=== PATIENT | female | born 1980 | race Caucasian/White ===

== ENCOUNTER 2019-03-17 01:37 | Inpatient (IN) | payer OTHER ==
[2019-03-17] MEDS ORDERED: BUTORPHANOL TARTRATE 1 MG/ML VIAL IVPB ONE (03:15)
[2019-03-17] MEDS ORDERED: PROMETHAZINE HCL 25 MG/1 ML VIAL IVPB ONE ×2 (03:15→12:54)
--- NOTE | 2019-03-17 03:23 | HP ---
Past Medical History - Primary Care Physician PCP:: Jozef Mann - Admission Chief Complaint: 39yo P1 with at EGA 39w2d admitted with spontaneous labor. History of Present Illness: complicated by AMA and excessive weight gain. 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: No: Alzheimer's, CVA, Dementia, Migraine, Multiple Sclerosis, Peripheral Neuropathy, Parkinson's, Seizure, Syncope, TIA, Vertigo, Other Cardiovascular: No: AFIB, Aneurysm, Aortic Insufficiency, Aortic Stenosis, CAD, CHF, Deep Vein Thrombosis, HTN, Hyperlipdemia, [place], Mitral Insufficiency, Mitral Stenosis, Murmur, Pulmonary Hypertension, Other Pulmonary: No: Asthma, Bronchitis, Cancer, COPD, O2 Dependent, Pneumonia, Previously Intubated, Pulmonary Embolus, Pulmonary Fibrosis, Sleep Apnea, Other Gastrointestinal: No: Ascites, Cancer, Constipation, Crohn's Disease, Diverticulitis, Diverticulosis, Esophageal Varices, Gastritis, GERD, GI Bleed, Hemorrhoids, Hiatal Hernia, Inflamatory Bowel Disease, Irritable Bowel Disease, Pancreatitis, Peptic Ulcer Disease, Ulcerative Colitis, Other Hepatobiliary: No: Cirrhosis, Cholelithiasis, Cholecystitis, Choledocholithiasis , Hepatitis A, Hepatitis B, Hepatitis C, Other Renal/: No: Renal Failure, Renal Inusuff, BPH, Cancer, Hematuria, Hemodialysis , Neurogenic Bladder, Renal Calculi, UTI, Other Reproductive: No: Ectopic , Endometriosis, Fibroids, PID, Polycystic Ovary Syndrome, Postmenopausal, Other ...: 3 ...Para: 1 ...Induced : 1 ... Weeks Gestation by Dates: 39.2 ...EDC by Sono: 03/22/19 Heme/Onc: No: Anemia, B12 Deficiency, Bleeding Disorder, Cancer, Current Chemotherapy, Current Radiation Therapy, Hemochromatosis, Hypercoaguable State, Myeloproliferative Synd, Sickle Cell Disease, Sickle Cell Trait, Thrombocytopenia, Other Infectious Disease: No: AIDS, C-Diff, Herpes Zoster, HIV, MRSA, STD's, Tuberculosis, VREF, Other Psych: No: Addictions, Anxiety, Bipolar, Depression, Panic, Psychosis, Schizophrenia, Other Musculoskeletal: No: Bursitis, Chronic low back pain, Hemiparesis, Hemiplegia, Osteoarthritis, Paraplegia, Other Rheumatology: No: Fibromyalgia, Gout, Lupus, Rheumatoid Arthritis, Sarcoidosis, Vasculitis, Other ENT: No: Allergic Rhinitis, Sinusitis, Other Endocrine: No: Essex's Disease, Willow's Disease, Diabetes Insipidus, Diabetes Mellitus, Hyperparathyroidism, Hyperthyroidism, Hypothyroidism, Osteopenia, SIADH, Other Dermatology: No: Basal Cell, Cellulitis, Eczema, Melanoma, Psoriasis, Squamous Cell, Other - Past Surgical History Hx Myomectomy: No Hx Transabdominal Cerclage: No Additional Surgical History: Breast lift, breast augmentation - Smoking History Smoking history: Never smoked Have you smoked in the past 12 months: No - Alcohol/Substance Use Hx Alcohol Use: No History of Substance Use: reports: None - Social History Usual Living Arrangement: Yes: With Significant Other ADL: Independent History of Recent Travel: No Home Medications - Allergies Allergies/Adverse Reactions: Allergies Allergy/AdvReac Type Severity Reaction Status Date / Time codeine Allergy Severe Vomiting Verified 01/09/19 11:26 Penicillins Allergy Severe Difficulty Verified 01/09/19 11:26 Breathing ciprofloxacin [From Cipro] Allergy Intermediate Verified 01/09/19 11:26 soy Allergy Intermediate Hives Verified 01/09/19 11:26 tree and shrub pollen Allergy Intermediate Swelling Verified 01/09/19 11:26 fruit Allergy Severe Swelling Uncoded 01/09/19 11:26 - Home Medications Home Medications: Ambulatory Orders RX: Vitamins (Sjr) - 1 tab PO DAILY 01/09/19 Family Disease History - Family Disease History Family History: Unremarkable Review of Systems - Review of Systems Constitutional: reports: Other (pain/labor) Eyes: reports: No Symptoms HENT: reports: No Symptoms Neck: reports: No Symptoms Cardiovascular: reports: No Symptoms Respiratory: reports: No Symptoms Gastrointestinal: reports: No Symptoms Genitourinary: reports: No Symptoms Breasts: reports: No Symptoms Reported Musculoskeletal: reports: No Symptoms Integumentary: reports: No Symptoms Neurological: reports: No Symptoms Endocrine: reports: No Symptoms Hematology/Lymphatic: reports: No Symptoms Psychiatric: reports: No Symptoms Pain Intensity: 8 Physical Exam - Maternity Constitutional: Yes: Well Nourished, Calm, Moderate Distress Eyes: Yes: WNL, Conjunctiva Clear, EOM Intact HENT: Yes: WNL, Atraumatic, Normocephalic Neck: Yes: WNL, Supple, Trachea Midline Cardiovascular: Yes: WNL, Regular Rate and Rhythm Lungs: Clear to auscultation, Normal air movement Breast(s): Yes: WNL - Abdominal Exam/OB Fundal Height: 40 Number of Fetuses: Single Presentation: Vertex Contractions: Yes Regularity: Regular (q4min) Intensity: Moderate Monitor Mode: External Heart Rate (range): 140 Heart Rate Location: Midline Category: I Accelerations: Non-Uniform Decelerations: None - Vaginal Exam/OB Vaginal Bleediing: No Speculum Exam: No Dilatation (cm): 1 Effacement (%): 50 Amniotic Membrane Status: Intact Presentation: Vertex/Position Station: -4 - Physical Exam Musculoskeletal: Yes: WNL Extremities: Yes: WNL Edema: Yes Edema: LLE: Trace, RLE: Trace Integumentary: Yes: WNL Deep Tendon Reflex Grade: Normal +2 ...Motor Strength: WNL Psychiatric: Yes: WNL, Alert, Oriented Hemorrhage Risk Assessment - Risk Factors Medium Risk Factors: Yes: None High Risk Factors: Yes: None Risk Score: 1 Risk Level: Medium Risk Imaging - Results Ultrasound: Report Reviewed Assessment/Plan 39yo P1 with at EGA 39w2d admitted with spontaneous labor. The Fetus with category I tracing. Labor is in latent phase. Plan to monitor labor progress. The pt requested pain meds.
[2019-03-17 03:40] LABS: BASO % 0.8 % (0-2.0); EOS % 1.2 % (0-4.5); HEMATOCRIT 35.2 % (32.4-45.2); HEMOGLOBIN 11.7 GM/dL (10.7-15.3); LYMPH % 12.8 % (8-40); MCH 29.5 pg (25.7-33.7); MCHC 33.2 g/dl (32.0-36.0); MEAN CELL VOLUME 88.8 fl (80-96); MEAN PLT VOLUME 9.5 fl (7.5-11.1); MONO % 9.9 % (3.8-10.2); NEUT % 75.3 % (42.8-82.8); PLATELET COUNT 301 K/MM3 (134-434); RBC 3.96 M/mm3 (3.60-5.2); RDW 13.2 % (11.6-15.6); WHITE BLOOD COUNT 10.7 K/mm3 (4.0-10.0)
[2019-03-17 03:52] LABS: INR 0.91 (0.83-1.09); PROTHROMBIN TIME (PATIENT) 10.7 SEC (9.7-13.0)
[2019-03-17 03:54] LABS: ACTIVATED PTT 29.8 SECONDS (25.2-36.5)
[2019-03-17 04:05] LABS: CALCIUM 8.6 mg/dL (8.5-10.1); CREATININE 0.5 mg/dL (0.55-1.3); POTASSIUM 4.3 mmol/L (3.5-5.1)
[2019-03-17] MEDS ORDERED: PROMETHAZINE HCL 25 MG/1 ML VIAL ONE (05:07)
[2019-03-17] MEDS ORDERED: BUTORPHANOL TARTRATE 2 MG/ML VIAL ONE (05:07)
[2019-03-17] MEDS: ELECTROLYTE-148 SOLN 1,000 ML IV SCH (05:15)
[2019-03-17 08:08] VITALS: BMI 31.1
[2019-03-17] MEDS ORDERED: OXYTOCIN 30 UNITS in 0.9% NS 30 UNIT/500 ML INFUS.BAG IVPB ONE (12:43)
[2019-03-17] MEDS ORDERED: BUTORPHANOL TARTRATE 1 MG/ML VIAL IVPUSH ONE (12:54)
--- NOTE | 2019-03-17 12:54 | PN ---
Ante-Partal Exam - Subjective Subjective: Patient comfortable without complaints Vital Signs: Vital Signs Temperature 98.6 F 03/17/19 10:00 Pulse Rate 73 03/17/19 11:00 Respiratory Rate 18 03/17/19 11:00 Blood Pressure 108/66 03/17/19 11:00 O2 Sat by Pulse Oximetry (%) Bleeding: No Headache: No Visual changes: No Right upper quadrant pain: No - Contractions Contractions: Yes Regularity: Irregular Intensity: Mild/Mod Monitor Mode: External - Exam during Labor Heart Rate: 130 Variability: Moderate Category: I Monitor Accelerations: Present Monitor Decelerations: None Exam: Vaginal Dilatation (cm): 2 Effacement (%): 50 Station: -4 - Intrapartum Hemorrhage Risk Medium Risk Factors: None High Risk Factors: None Risk Score: 0 Risk Level: Low Risk - Assessment/Plan Assessment/Plan: 39 yo in early labor, no contractions 1. Will augment with pitocin 2. Will offer pain medication upon request 3. Category I FHT 4. Will proceed with expectant management
[2019-03-17] MEDS ORDERED: OXYTOCIN 30 UNITS in 0.9% NS 30 UNIT/500 ML INFUS.BAG IVPB SCH (13:00)
[2019-03-17] MEDS ORDERED: FENTANYL/BUPIVACAINE/NS/PF - PCEA - 50 ML DISP.SYRIN EP ONE ×3 (14:24→22:26)
[2019-03-17] MEDS ORDERED: BUPIVACAINE HCL/PF 0.25% (2.5MG/ML) 10 ML VIAL ONE ×3 (14:33→20:59)
[2019-03-17] MEDS ORDERED: EPINEPHrine/PF 1 MG/1 ML (1:1,000) AMPULE ONE (14:33)
[2019-03-17] MEDS ORDERED: LIDOCAINE HCL 1% PRESERVATIVE FREE - 30ML VIAL ONE (14:34)
[2019-03-17] MEDS ORDERED: NALOXONE HCL 0.4 MG/ML VIAL IVPUSH PRN (15:09)
[2019-03-17] MEDS ORDERED: FENTANYL/BUPIVACAINE/NS/PF - PCEA - 50 ML DISP.SYRIN EP SCH (15:15)
[2019-03-17] MEDS ORDERED: TUBERCULIN PPD 5 TU/0.1ML SYRINGE (IN PATIENT USE ONLY) ID ONE (19:00)
--- NOTE | 2019-03-17 22:10 | PN ---
Ante-Partal Exam - Subjective Subjective: Comfortable s/p replacement of epidural Vital Signs: Vital Signs Temperature 98.4 F 03/17/19 20:00 Pulse Rate 74 03/17/19 18:45 Respiratory Rate 20 03/17/19 18:45 Blood Pressure 104/66 03/17/19 18:45 O2 Sat by Pulse Oximetry (%) 99 03/17/19 18:45 Bleeding: No Headache: No Visual changes: No Right upper quadrant pain: No - Contractions Contractions: Yes Regularity: Regular Intensity: Mild Monitor Mode: External - Exam during Labor Heart Rate: 140 Variability: Moderate Category: II Monitor Accelerations: Present Monitor Decelerations: Variable (occasional) Exam: Vaginal Dilatation (cm): 8 Effacement (%): 100 Amniotic Membrane Status: Ruptured Amniotic Fluid: Clear Presentation: Vertex Station: -1 - Intrapartum Hemorrhage Risk Medium Risk Factors: None High Risk Factors: None Risk Score: 0 Risk Level: Low Risk - Assessment/Plan Assessment/Plan: 39 yo active labor 1. On pitocin, will continue per protocol 2. GBS neg 3. Pain well controlled with epidural repalcement 4. Will proceed with expectant management
[2019-03-18] MEDS ORDERED: OXYTOCIN 20 UNITS in 0.9% NS 20 UNIT/1,000 ML INFUS.BAG IV ONE ×2 (00:43→04:06)
[2019-03-18] MEDS ORDERED: LIDOCAINE HCL 1% PRESERVATIVE FREE - 30ML VIAL ONE (00:46)
--- NOTE | 2019-03-18 01:54 | PN ---
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 Weight and length unknown at this time. Head delivered spontaneously followed by shoulders and body without difficulty. Infant with spontaneous cry. Nose and mouth was bulb suctioned. Cord was clamped and cut. Perineum and vagina examined, no lacerations noted. Placenta was delivered spontaneously and intact. 20 units of pitocin in 1 L IVF was given. All counts correct x 2. Mother and stable in LDR. EBL 300cc.
[2019-03-18] MEDS ORDERED: BISACODYL 10 MG SUPP.RECT RC PRN (01:55)
[2019-03-18] MEDS ORDERED: WITCH HAZEL 50% (TUCKS) 40 PAD/JAR PAD TP PRN (01:55)
[2019-03-18] MEDS ORDERED: BENZOCAINE 20% 57 GM BOTTLE TP PRN (01:55)
[2019-03-18] MEDS ORDERED: METHYLERGONOVINE MALEATE 0.2 MG/1 ML AMP IM PRN (01:55)
[2019-03-18] MEDS ORDERED: BENZOCAINE 28 GM HEMORRHOIDAL OINTMENT TP PRN (01:55)
[2019-03-18] MEDS ORDERED: OXYTOCIN 20 UNITS in 0.9% NS 20 UNIT/1,000 ML INFUS.BAG IV SCH (02:00)
[2019-03-18] MEDS: ELECTROLYTE-148 SOLN 1,000 ML IV SCH (03:50)
[2019-03-18] MEDS: IBUPROFEN 600 MG TABLET (FP) PO PRN ×3 (07:20→20:11)
[2019-03-18] MEDS: ACETAMINOPHEN 325 MG TABLET (FP) PO PRN ×3 (07:22→20:11)
[2019-03-18] MEDS: PRENATAL VITAMINS W/ FOLIC ACID TABLET (FP) PO SCH (10:52)
[2019-03-19] MEDS: ACETAMINOPHEN 325 MG TABLET (FP) PO PRN ×5 (01:52→23:40)
[2019-03-19] MEDS: IBUPROFEN 600 MG TABLET (FP) PO PRN ×5 (01:52→23:40)
[2019-03-19 08:26] LABS: BASO % 0.7 % (0-2.0); EOS % 2.4 % (0-4.5); HEMATOCRIT 26.9 % (32.4-45.2); LYMPH % 14.7 % (8-40); MCH 29.7 pg (25.7-33.7); MCHC 33.3 g/dl (32.0-36.0); MEAN CELL VOLUME 89.4 fl (80-96); MEAN PLT VOLUME 9.1 fl (7.5-11.1); MONO % 10.7 % (3.8-10.2); NEUT % 71.5 % (42.8-82.8); PLATELET COUNT 246 K/MM3 (134-434); RBC 3.01 M/mm3 (3.60-5.2); RDW 13.5 % (11.6-15.6); WHITE BLOOD COUNT 8.6 K/mm3 (4.0-10.0)
[2019-03-19] MEDS: PRENATAL VITAMINS W/ FOLIC ACID TABLET (FP) PO SCH (09:02)
--- NOTE | 2019-03-19 11:04 | DS ---
Physical Exam-TRENCH TRIMMER FINE Vital Signs: Vital Signs Temperature 97.6 F 03/19/19 07:50 Pulse Rate 74 03/19/19 07:50 Respiratory Rate 18 03/19/19 07:50 Blood Pressure 116/76 03/19/19 07:50 O2 Sat by Pulse Oximetry (%) 99 03/18/19 01:15 Constitutional: Yes: Well Nourished, No Distress, Calm Eyes: Yes: WNL, Conjunctiva Clear, EOM Intact HENT: Yes: WNL, Atraumatic, Normocephalic Neck: Yes: WNL, Supple, Trachea Midline Cardiovascular: Yes: WNL, Regular Rate and Rhythm Respiratory: Yes: WNL, Regular, CTA Bilaterally Gastrointestinal: Yes: WNL ...Rectal Exam: Yes: WNL Renal/: Yes: WNL ....Post : Yes: Uterus firm, Uterus non-tender, Slight lochia rubra Breast(s): Yes: WNL Musculoskeletal: Yes: WNL Extremities: Yes: WNL Edema: No Integumentary: Yes: WNL Neurological: Yes: WNL, Alert, Oriented ...Motor Strength: WNL Psychiatric: Yes: WNL, Alert, Oriented Labs: CBC, BMP 03/19/19 06:45 03/17/19 03:09 Delivery - Delivery Vaginal Delivery: No Problems Type of Anesthesia: Epidural Episiotomy/Laceration: None EBL (cc): 300 Delivery, Single - Stages of Labor Date 1st Stage Initiatied: 03/16/19 Time 1st Stage Initiated: 22:00 Date 2nd Stage Initiated: 03/18/19 Time 2nd Stage Initiated: 00:10 Date of Delivery: 03/18/19 Time of Delivery: 01:30 Time Placenta Delivered: 01:45 Placenta: Yes: Spontaneous - Condition of Voice Over Artist/Clinical Specialist Medical Device Present: Yes Infant Gender: Male Weight: 7 lb 3 oz Position: Left, OA Total Hours ROM (Hrs/Mins): 5 hours 30 minutes - 1 Minute Total Score: 8 5 Minutes Total Score: 9 - Feeding Plan Initial Plan: Exclusive throughout hospitalization Discharge Summary Reason For Visit: LABOR ADMIT Other Procedures: - Instructions Diet, Activity, Other Instructions: regular diet, no intercourse, if heavy vaginal bleeding, fever call MD follow up office 4 weeks Referrals: Jozef Mann MD [Family Provider] - - Home Medications Comprehensive Discharge Medication List: Ambulatory Orders Vitamins (Sjr) - 1 tab PO DAILY 01/09/19
[2019-03-19] MEDS ORDERED: SENNOSIDES/DOCUSATE COMBO (SENNA PLUS) TABLET (UD) PO PRN (22:00)
[2019-03-19 22:05] VITALS: PULSE 64
--- NOTE | 2019-03-20 04:29 | PN ---
Post Progress Note - Subjective Subjective: Patient without acute complaints. Reports tolerating oral intake without nausea or vomiting. Ambulating without dizziness. Denies fevers or chills. Pain well controlled with oral pain medication. without difficulty. Passing flatus. Post Day: 2 Type of Delivery: Vital Signs: Vital Signs Temperature 98.0 F 03/19/19 22:00 Pulse Rate 64 03/19/19 22:00 Respiratory Rate 18 03/19/19 22:00 Blood Pressure 108/73 03/19/19 22:00 O2 Sat by Pulse Oximetry (%) 99 03/18/19 01:15 Breast Exam: Yes: Soft, Cracked Nipples Uterus: Yes: Fundus Firm, Fundus below umbilicus Abdomen/GI: Yes: Abdomen soft, Passing flatus, Tolerating PO. No: Abdominal Distention, Tender Lochia: Yes: Rubra Lochia, amount: Small Extremities: Yes: Calves non-tender, Edema (trace) Perineum: Yes: Intact Activity: Ambulating - Labs Labs: CBC WBC 8.6 K/mm3 (4.0-10.0) 03/19/19 06:45 RBC 3.01 M/mm3 (3.60-5.2) L 03/19/19 06:45 Hgb 9.0 GM/dL (10.7-15.3) L 03/19/19 06:45 Hct 26.9 % (32.4-45.2) L D 03/19/19 06:45 MCV 89.4 fl (80-96) 03/19/19 06:45 MCH 29.7 pg (25.7-33.7) 03/19/19 06:45 MCHC 33.3 g/dl (32.0-36.0) 03/19/19 06:45 RDW 13.5 % (11.6-15.6) 03/19/19 06:45 Plt Count 246 K/MM3 (134-434) 03/19/19 06:45 MPV 9.1 fl (7.5-11.1) 03/19/19 06:45 Absolute Neuts (auto) 6.1 K/mm3 (1.5-8.0) 03/19/19 06:45 Neutrophils % 71.5 % (42.8-82.8) 03/19/19 06:45 Lymphocytes % 14.7 % (8-40) 03/19/19 06:45 Monocytes % 10.7 % (3.8-10.2) H 03/19/19 06:45 Eosinophils % 2.4 % (0-4.5) D 03/19/19 06:45 Basophils % 0.7 % (0-2.0) 03/19/19 06:45 Nucleated RBC % 0 % (0-0) 03/19/19 06:45 Assessment/Plan 39 yo PPD # 2 s/p , afebrile, vital signs stable, mild asymptomatic anemia, doing well, stable for discharge home today. 1. Patient stable for discharge home today. 2. Patient encouraged to contact MD for: - Severe pain not controlled by oral pain medication - Fevers or chills - Nausea or vomiting, intolerance of oral intake 3. Patient to follow up in office in 4-6 weeks for visit
[2019-03-20] MEDS: ACETAMINOPHEN 325 MG TABLET (FP) PO PRN (07:28)
[2019-03-20] MEDS: IBUPROFEN 600 MG TABLET (FP) PO PRN (07:28)
[2019-03-20 08:48] VITALS: BP 118/83; TEMP 97.6
[2019-03-20] MEDS: PRENATAL VITAMINS W/ FOLIC ACID TABLET (FP) PO SCH (09:17)
== END 2019-03-20 12:05 | disposition home or self-care (01) | DRG 560 ==
LOC: JDEL 01:37 → JLDR 01:55 → J3W 03-18 04:13
PROVIDERS: ADMIT Obstetrics & Gynecology; ATTEND Obstetrics & Gynecology
PROC: 10E0XZZ Delivery of Products of Conception, External Approach (ICD-10-PCS; principal; 2019-03-18)
DX: O80 Encounter for full-term uncomplicated delivery (principal); Z3A.39 39 weeks gestation of pregnancy; Z37.0 Single live birth
CPT/HCPCS: 36415; 59409; 80048; 85025; 85610; 85730; 86593; 86850; 86900; 86901; 87389